=== PATIENT | female | born 1995 | race African-American/Black ===

== ENCOUNTER 2018-02-28 12:53 | Emergency (ER) | payer SELFPAY ==
[~2018-02-28] VITALS: Ht 165.1 cm; Wt 52.2 kg
[2018-02-28 15:47] VITALS: BP 115/55
[2018-02-28] MEDS ORDERED: KETOROLAC TROMETH 60MG/2ML VIAL IM ONE (16:30)
== END 2018-02-28 17:30 | disposition home or self-care (01) ==
LOC: ER 13:07
DX: N39.0 Urinary tract infection, site not specified (principal); R07.89 Other chest pain
CPT/HCPCS: 72070; 81025; 99284; J1885